=== PATIENT | male | born 1950 | race Two or more races ===

== ENCOUNTER → 2018-09-27 | Emergency (ER) | payer OTHER ==
[~2018-09-27] VITALS: Ht 165.1 cm; Wt 90.7 kg
[~2018-09-27] MED LIST: AMOX1TAB5; TERAZOSIN HCL10 MG
== END | disposition home or self-care (01) ==
LOC: ER 19:01
DX: R33.8 Other retention of urine (principal); N39.0 Urinary tract infection, site not specified